=== PATIENT | female | born 1975 | race American Indian/Alaskan Native ===

== ENCOUNTER 2016-11-21 11:52 | Outpatient (CLI) | payer BC ==
--- NOTE | 2016-11-21 12:53 | Mammography Report ---
Bilateral mammogram: Compared to 09/29/15. CAD study utilized. Findings: Predominance it was tissue bilaterally. Circumscribed new focal asymmetry posterior mid right breast. No microcalcification. Benign axillary nodes. Impression: Circumscribed focal new densities in the right breast. Recommend spot mag and sonographic examination. BI-RADS CATEGORY: 0 = Needs additional imaging evaluation ACR BI-RADS MAMMOGRAPHIC CODES: 0 = Needs additional imaging evaluation; 1 = Negative; 2 = Benign; 3 = Probably benign; 4 = Suspicious; 5 = Malignant; 6 = Known biopsy-proven malignancy COMMENT: 1. Dense breast tissue, i.e., adenosis, fibrocystic changes, etc., may obscure an underlying neoplasm. 2. Approximately 10% of cancers are not detected with mammography. 3. A negative mammography report should not delay biopsy if a clinically suspicious mass is present. COMMENT: Patient follow-up letters are generated in [employer].
== END 2016-11-21 11:53 | disposition home or self-care (01) ==
LOC: MAMMO 11:52
PROVIDERS: ATTEND Obstetrics & Gynecology
DX: Z12.31 Encounter for screening mammogram for malignant neoplasm of breast (principal)
CPT/HCPCS: 77067; G0202

== ENCOUNTER 2016-11-30 11:26 | Outpatient (CLI) | payer BC ==
--- NOTE | 2016-11-30 14:29 | Ultrasound Report ---
RIGHT DIGITAL DIAGNOSTIC MAMMOGRAM and RIGHT BREAST ULTRASOUND: 11/30/16 11:26:00 CLINICAL: Recalled for asymmetry. COMPARISON:11/21/16 screening FINDINGS: ML, repeat CC and spot compression CC views were performed. Partial effacement of the asymmetry on the CC view and no definite correlation on the lateral or previous MLO view. Ultrasound of the right breast (including all four quadrants and the retroareolar area) was performed and demonstrated normal fibroglandular and fatty structures. No mass, cyst or shadowing. Ultrasound of the right axilla demonstrated benign lymph node with central fat measuring 2.1 cm. IMPRESSION: A probably benign right asymmetry confidently identified only on the CC view with a negative ultrasound. Recommend six month followup right mammogram and ultrasound if needed. BIRADS 3--Probably Benign ACR BI-RADS MAMMOGRAPHIC CODES: 0 = Needs additional imaging evaluation; 1 = Negative; 2 = Benign; 3 = Probably benign; 4 = Suspicious; 5 = Malignant; 6 = Known biopsy-proven malignancy COMMENT: 1. Dense breast tissue, i.e., adenosis, fibrocystic changes, etc., may obscure an underlying neoplasm. 2. Approximately 10% of cancers are not detected with mammography. 3. A negative mammography report should not delay biopsy if a clinically suspicious mass is present. COMMENT: Patient follow-up letters are generated via our [employer] application.
== END 2016-11-30 11:27 | disposition home or self-care (01) ==
LOC: MAMMO 11:26
PROVIDERS: ATTEND Obstetrics & Gynecology
DX: N64.89 Other specified disorders of breast (principal)
CPT/HCPCS: 76641; G0206

== ENCOUNTER 2017-05-14 08:38 | Outpatient (CLI) | payer BC ==
--- NOTE | 2017-05-14 10:16 | Mammography Report ---
RIGHT DIGITAL DIAGNOSTIC MAMMOGRAM with CAD and RIGHT BREAST ULTRASOUND: 05/14/17 08:38:00 CLINICAL: Follow-up asymmetry.. COMPARISON:11/30/16, 11/21/16 and 09/29/15 FINDINGS: The breast is mostly fatty with a few scattered fibroglandular densities. A partially circumscribed irregular outer asymmetry on the CC view is stable on both routine and spot compression views. It measures approximately 1.3 cm. There is a vague asymmetry on the MLO view at the nipple level which correlates with the finding on the CC view. No architectural distortion or suspicious calcifications. Ultrasound of the outer right breast was performed and demonstrated no mass, cyst or shadowing to correlate with the mammographic finding. IMPRESSION: Stable probably benign asymmetry with a negative ultrasound. BI-RADS CATEGORY: 3 - - Probably Benign RECOMMENDATION: Bilateral mammogram in six months when she will be due for routine screening of the left breast. ACR BI-RADS MAMMOGRAPHIC CODES: 0 = Needs additional imaging evaluation; 1 = Negative; 2 = Benign; 3 = Probably benign; 4 = Suspicious; 5 = Malignant; 6 = Known biopsy-proven malignancy COMMENT: 1. Dense breast tissue, i.e., adenosis, fibrocystic changes, etc., may obscure an underlying neoplasm. 2. Approximately 10% of cancers are not detected with mammography. 3. A negative mammography report should not delay biopsy if a clinically suspicious mass is present. COMMENT: Patient follow-up letters are generated by our [email or web address] application.
== END 2017-05-14 08:39 | disposition home or self-care (01) ==
LOC: MAMMO 08:38
PROVIDERS: ATTEND Obstetrics & Gynecology
DX: N64.89 Other specified disorders of breast (principal)
CPT/HCPCS: 76642; G0206

== ENCOUNTER 2017-11-23 08:12 | Outpatient (CLI) | payer BC ==
--- NOTE | 2017-11-23 09:36 | Mammography Report ---
Bilateral mammogram: Compared to 05/14/17 11/30/16 and 11/21/16. CAD study utilized. Findings: Predominance of adipose tissue bilaterally. Again focal asymmetry is identified at the upper outer right breast without significant interval change. No additional densities are noted. No microcalcification. Normal axilla. Impression: Benign findings. Annual followup recommended. BI-RADS CATEGORY: 2 = Benign ACR BI-RADS MAMMOGRAPHIC CODES: 0 = Needs additional imaging evaluation; 1 = Negative; 2 = Benign; 3 = Probably benign; 4 = Suspicious; 5 = Malignant; 6 = Known biopsy-proven malignancy COMMENT: 1. Dense breast tissue, i.e., adenosis, fibrocystic changes, etc., may obscure an underlying neoplasm. 2. Approximately 10% of cancers are not detected with mammography. 3. A negative mammography report should not delay biopsy if a clinically suspicious mass is present. COMMENT: Patient follow-up letters are generated in [employer].
== END 2017-11-23 08:13 | disposition home or self-care (01) ==
LOC: MAMMO 08:12
PROVIDERS: ATTEND Obstetrics & Gynecology
DX: Z12.31 Encounter for screening mammogram for malignant neoplasm of breast (principal)
CPT/HCPCS: 77067

== ENCOUNTER 2018-12-04 08:13 | Outpatient (CLI) | payer BC ==
--- NOTE | 2018-12-04 10:24 | Mammography Report ---
BILATERAL DIGITAL DIAGNOSTIC MAMMOGRAM with CAD and RIGHT BREAST ULTRASOUND: 12/04/18 08:13:00 CLINICAL: Palpable right axillary lump. COMPARISON:11/23/17 and 09/29/15 FINDINGS: The breasts are mostly fatty.No mass, architectural distortion or suspicious calcifications. A right axillary lymph node with a fatty hilum is unchanged since 09/29/15. No mammographic finding and a right axillary palpable marker. No mass, architectural distortion or suspicious calcifications. Ultrasound of the right axilla demonstrated skin thickening where she feels a lump. The skin measures approximately 5 mm maximum and there is a 4 x 4 by 2 mm irregular hypoechoic mass within the skin. A lymph node with benign morphology and central fat is in the inferior axilla and measures 1.8 x 0.6 x 0.8 cm. It correlates with the lymph node on the mammogram. IMPRESSION: A benign intradermal skin lesion in the right axilla. The appearance is consistent with either a sebaceous cyst or epidermal inclusion cyst. A benign right axillary lymph node. No suspicious finding. BI-RADS CATEGORY: 2 - - Benign RECOMMENDATION: Clinical followup and routine mammographic screening in one year. COMMENT: 1. Dense breast tissue, i.e., adenosis, fibrocystic changes, etc., may obscure an underlying neoplasm. 2. Approximately 10% of cancers are not detected with mammography. 3. A negative mammography report should not delay biopsy if a clinically suspicious mass is present. COMMENT: Patient follow-up letters are generated by our [employer] application.
== END 2018-12-04 08:14 | disposition home or self-care (01) ==
LOC: MAMMO 08:13
PROVIDERS: ATTEND Obstetrics & Gynecology
DX: D36.0 Benign neoplasm of lymph nodes (principal)